=== PATIENT | female | born 2000 | race Caucasian/White ===

== ENCOUNTER 2023-04-27 00:14 | Emergency (ER) | payer MEDICAID ==
[~2023-04-27] VITALS: Ht 167.6 cm; Wt 55.0 kg
[2023-04-27 00:24] VITALS: O2SAT 100
[2023-04-27] MEDS ORDERED: IBUP-2029 MT (01:08)
[2023-04-27] MEDS ORDERED: METH-653 MT (01:08)
[2023-04-27 01:54] VITALS: RESP 18
[2023-04-27] MEDS: METHOCARBAMOL 500MG TABLET PO ONE (01:54)
[2023-04-27] MEDS: IBUPROFEN 600MG TABLET PO ONE (01:54)
[2023-04-27 06:23] VITALS: BP 99/57; PULSE 64; TEMP 97.8
== END 2023-04-27 06:10 | disposition home or self-care (01) ==
LOC: ER 00:27
DX: S13.4XXA Sprain of ligaments of cervical spine, initial encounter (principal); V49.59XA Passenger injured in collision with other motor vehicles in traffic accident, initial encounter; Y93.89 Activity, other specified; Y92.89 Other specified places as the place of occurrence of the external cause; Y99.8 Other external cause status
CPT/HCPCS: 99283

== ENCOUNTER 2023-04-27 03:40 | Emergency (ER) | payer MEDICAID ==
[~2023-04-27] VITALS: Ht 167.6 cm; Wt 69.0 kg
[~2023-04-27 03:40] MED LIST: IBUP-2029 MT; METH-653 MT
[2023-04-27] MEDS ORDERED: ACETAMINOPHEN 325MG TABLET PO SCH (05:27)
== END 2023-04-27 06:10 | disposition home or self-care (01) ==
LOC: ER 03:40
DX: M53.3 Sacrococcygeal disorders, not elsewhere classified (principal); V99.XXXA Unspecified transport accident, initial encounter; Y93.89 Activity, other specified; Y92.89 Other specified places as the place of occurrence of the external cause; Y99.8 Other external cause status
CPT/HCPCS: 99281